=== PATIENT | male | born 1975 | race Caucasian/White ===

== ENCOUNTER 2019-02-13 22:33 | Emergency (ER) | payer MEDICAID ==
[~2019-02-13] VITALS: Ht 162.6 cm; Wt 73.5 kg
[2019-02-13 23:31] VITALS: Ht 162.6 cm; Wt 73.5 kg
[2019-02-14 01:39] LABS: BASOPHIL % 0.3 % (0-2); PLATELET COUNT 254 x10^3mcL (130-400); RED CELL DISTRIBUTION WIDTH 13.5 % (11.5-14.5)
[2019-02-14 01:42] LABS: UA SPECIFIC GRAVITY <=1.005 (1.005-1.035); microscopic required? YES; urine erythrocyte TRACE (NEGATIVE)
[2019-02-14 01:45] LABS: CALCIUM 9.6 mg/dL (8.5-10.1); CARBON DIOXIDE 27.4 mmol/L (21-32); CREATININE SERUM 1.8 mg/dL (0.7-1.3); POTASSIUM SERUM 4.6 mmol/L (3.5-5.1)
[2019-02-14 01:50] LABS: ALBUMIN 3.9 g/dL (3.4-5.0); BILIRUBIN TOTAL 0.52 mg/dL (0.20-1.00)
[2019-02-14 02:02] LABS: TOTAL PROTEIN, SERUM 8.7 g/dL (6.4-8.2)
[2019-02-14 03:26] VITALS: BP 132/80
== END 2019-02-14 03:26 | disposition home or self-care (01) ==
LOC: ED 22:33
PROVIDERS: Emergency Medicine
DX: R10.9 Unspecified abdominal pain (principal); R82.71 Bacteriuria; R50.9 Fever, unspecified; R31.9 Hematuria, unspecified
CPT/HCPCS: J1885; J2405; J7030

== ENCOUNTER 2019-05-30 03:37 | Emergency (ER) | payer MEDICAID ==
[~2019-05-30] VITALS: Ht 175.3 cm; Wt 71.8 kg
[2019-05-30 03:42] VITALS: Ht 175.3 cm; Wt 71.8 kg
[2019-05-30 04:12] LABS: PLATELET COUNT 221 x10^3mcL (130-400)
[2019-05-30 04:18] LABS: CALCIUM 8.7 mg/dL (8.5-10.1); CARBON DIOXIDE 26.5 mmol/L (21-32); CHLORIDE SERUM 103 mmol/L (98-107); CREATININE SERUM 0.9 mg/dL (0.7-1.3); GFR1 > 60 mL/min; GLUCOSE SERUM 103 mg/dL (74-106); POTASSIUM SERUM 3.7 mmol/L (3.5-5.1); SODIUM SERUM 140 mmol/L (136-145)
[2019-05-30 04:23] LABS: ALBUMIN 3.9 g/dL (3.4-5.0); ALKALINE PHOSPHATASE 61 U/L (46-116); ALT/SGPT 36 U/L (16-63); AST/SGOT 27 U/L (15-37); BILIRUBIN TOTAL 0.72 mg/dL (0.20-1.00); LIPASE 95 IU/L (73-393); TOTAL PROTEIN, SERUM 8.2 g/dL (6.4-8.2)
[2019-05-30 06:06] VITALS: BP 125/80
== END 2019-05-30 06:06 | disposition home or self-care (01) ==
LOC: ED 03:37
PROVIDERS: Emergency Medicine
DX: R10.816 Epigastric abdominal tenderness (principal); R22.2 Localized swelling, mass and lump, trunk; Z98.890 Other specified postprocedural states
CPT/HCPCS: 36415; J1885

== ENCOUNTER → 2019-05-30 17:49 | Emergency (ER) | payer MEDICAID | END | disposition left against medical advice (07) | LOC: ED 17:49 | DX: Z53.21 Procedure and treatment not carried out due to patient leaving prior to being seen by health care provider (principal) ==

== ENCOUNTER 2019-12-06 13:15 | Emergency (ER) | payer MEDICAID ==
[~2019-12-06] VITALS: Ht 177.8 cm; Wt 68.0 kg
[2019-12-06 13:19] VITALS: BP 123/84; Ht 177.8 cm; Wt 68.0 kg
[2019-12-06 13:59] LABS: BASOPHIL % 0.6 % (0-2); PLATELET COUNT 260 x10^3mcL (130-400); RED CELL DISTRIBUTION WIDTH 13.2 % (11.5-14.5)
[2019-12-06 14:05] LABS: CALCIUM 8.9 mg/dL (8.5-10.1); CARBON DIOXIDE 28.2 mmol/L (21-32); CHLORIDE SERUM 103 mmol/L (98-107); CREATININE SERUM 0.8 mg/dL (0.7-1.3); GFR1 > 60 mL/min; GLUCOSE SERUM 102 mg/dL (74-106); POTASSIUM SERUM 3.9 mmol/L (3.5-5.1); SODIUM SERUM 140 mmol/L (136-145)
[2019-12-06 14:11] LABS: ALBUMIN 4.1 g/dL (3.4-5.0); ALKALINE PHOSPHATASE 51 U/L (46-116); AST/SGOT 22 U/L (15-37); LIPASE 80 IU/L (73-393); TOTAL PROTEIN, SERUM 8.1 g/dL (6.4-8.2)
[2019-12-06 14:24] LABS: ALT/SGPT 44 U/L (16-63)
== END 2019-12-06 15:00 | disposition home or self-care (01) ==
LOC: ED 13:15
PROVIDERS: Emergency Medicine
DX: K29.70 Gastritis, unspecified, without bleeding (principal)
CPT/HCPCS: 36415; J1885

== ENCOUNTER 2020-02-06 19:25 | Emergency (ER) | payer MEDICAID ==
[~2020-02-06] VITALS: Ht 167.6 cm; Wt 71.8 kg
[2020-02-06 19:39] VITALS: Ht 167.6 cm; Wt 71.8 kg
[2020-02-06 23:10] VITALS: BP 112/71
== END 2020-02-06 23:10 | disposition home or self-care (01) ==
LOC: ED 19:25
DX: S39.011A Strain of muscle, fascia and tendon of abdomen, initial encounter (principal); X58.XXXA Exposure to other specified factors, initial encounter; Y93.89 Activity, other specified; Y92.89 Other specified places as the place of occurrence of the external cause; Y99.8 Other external cause status
CPT/HCPCS: J1885; Q0092